=== PATIENT | female | born 1985 | race African-American/Black ===

== ENCOUNTER 2016-05-27 00:22 | Emergency (ER) | payer MEDICAID ==
[~2016-05-27] VITALS: Ht 165.1 cm; Wt 68.0 kg
[~2016-05-27 00:22] MED LIST: ALBU18
[2016-05-27 01:03] LABS: Basophils # (auto) 0 uL; Basophils % (auto) 0.2 % (0.0-2.0); DEFINITIVE VIEW TRANSMISSION; Eosinophils # (auto) 0.1 uL; Eosinophils % (auto) 0.8 % (0.0-7.0); Hematocrit 38.7 % (36.0-46.0); Lymphocytes # (auto) 2.7 uL; Lymphocytes % (auto) 17.1 % (10.0-50.0); Mean Corpuscular Hemoglobin 25.9 pg (28.0-32.0); Mean Corpuscular Hgb Conc. 31.1 g/dL (32.0-36.0); Mean Corpuscular Volume 83.1 fL (80.0-100.0); Monocytes # (auto) 0.8 uL; Monocytes % (auto) 4.8 % (0.0-12.0); Neutrophils # (auto) 12.3 uL; Neutrophils % (auto) 77.1 % (37.0-80.0); Platelet Count (auto) 224 10^3/uL (140-450); Red Cell Distribution Width 15.1 % (11.6-16.0); White Blood Cell 15.9 10^3/uL (4.4-10.8)
[2016-05-27 01:05] LABS: Urine Bilirubin Negative (Negative); Urine Color Yellow (Yellow); Urine Glucose Normal (Normal); Urine Ketone Negative (Negative); Urine Mucus FEW (None Seen); Urine Nitrite Negative (Negative); Urine RBC 2 /hpf (0 - 4); Urine Squamous Epithelial Cell FEW /hpf (<5); Urine Urobilinogen Normal (Negative); Urine pH 8.5 (5.0-8.0)
[2016-05-27 01:06] LABS: Urine Blood 2+ /uL (Negative)
[2016-05-27 01:21] LABS: Albumin 3.6 g/dL (3.4-5.0); BUN/Creatinine Ratio 13.6; Calcium 8.1 mg/dL (8.5-10.1); Potassium 3.3 mmol/L (3.5-5.1)
[2016-05-27 01:23] LABS: Bilirubin, Total 0.5 mg/dL (0.2-1.0); Total Protein 7.2 g/dL (6.4-8.2)
[2016-05-27] MEDS ORDERED: SODIUM CHLORIDE 0.9% 1,000 ML IV ONE (04:16)
[2016-05-27] MEDS ORDERED: CIPROFLOXACIN 400MG/200ML 200 ML IV ONE (04:30)
[2016-05-27] MEDS ORDERED: POTASSIUM CHL 10% (20 MEQ/15ML) ORAL SOLN PO ONE (04:30)
[2016-05-27 05:20] VITALS: BP 102/55
== END 2016-05-27 06:20 | disposition home or self-care (01) ==
LOC: EDUNIT# 00:22 → EDBD 00:22 → ER 00:27
DX: K52.9 Noninfective gastroenteritis and colitis, unspecified (principal); N39.0 Urinary tract infection, site not specified; J45.909 Unspecified asthma, uncomplicated; F17.210 Nicotine dependence, cigarettes, uncomplicated; Z88.6 Allergy status to analgesic agent
CPT/HCPCS: 36415; 74176; 80053; 81001; 81025; 82150; 83690; 85025; 85049; 96361; 96365; 99285; J0744; J7030

== ENCOUNTER 2020-04-20 18:44 | Inpatient (IN) | payer MEDICAID ==
[~2020-04-20] VITALS: Ht 170.2 cm; Wt 63.5 kg
[2020-04-20] MEDS ORDERED: methylPREDNISolone SOD SUCC 125 MG/2 ML VL ONE (18:52)
[2020-04-20] MEDS ORDERED: ONDANSETRON HCL 4 MG/2 ML VIAL ONE (18:59)
[2020-04-20] MEDS ORDERED: SODIUM CHLORIDE 0.9% 1,000 ML IV ONE ×3 (19:00→20:15)
[2020-04-20] MEDS: MAGNESIUM SULFATE 1GM/100ML 100 ML IV SCH ×2 (19:00→20:22)
[2020-04-20] MEDS ORDERED: ALBUTEROL SULF 2.5 MG/0.5ML(0.5%) NEB SOLN NEB ONE ×3 (19:00→20:15)
[2020-04-20] MEDS ORDERED: methylPREDNISolone SOD SUCC 125 MG/2 ML VL IM ONE (19:00)
[2020-04-20] MEDS ORDERED: MAGNESIUM SULFATE 1GM/100ML 100 ML IV SCH (19:15)
[2020-04-20] MEDS ORDERED: ONDANSETRON HCL 4 MG/2 ML VIAL IV ONE (19:15)
[2020-04-20] MEDS ORDERED: IPRATROPIUM BROM 0.5 MG/2.5ML INH SOL NEB ONE ×2 (19:45→20:15)
[2020-04-20 20:23] LABS: Hemoglobin 13.1 g/dL (12.2-16.2); White Blood Cell 18.8 10^3/uL (4.4-10.8)
[2020-04-20 20:25] LABS: Hematocrit 42.4 % (36.0-46.0); Mean Corpuscular Hemoglobin 26.5 pg (28.0-32.0); Mean Corpuscular Hgb Conc. 30.9 g/dL (32.0-36.0); Mean Corpuscular Volume 85.7 fL (80.0-100.0); Platelet Count (auto) 257 10^3/uL (140-450); Red Blood Cells 4.95 10^6/uL (4.0-5.20); Red Cell Distribution Width 14.7 % (11.8-14.3)
[2020-04-20 20:33] LABS: Band Neutrophils % (manual) 0; Basophils % (manual) 0 (0.0-2.0); Metamyelocytes % 0; Myelocytes % 0; Promyelocytes % 0; Reactive Lymphocytes 0
[2020-04-20 20:34] LABS: Blast Cells 0
[2020-04-20 20:41] LABS: Albumin 3.2 g/dL (3.4-5.0); Anion Gap 19 (5-15); Blood Urea Nitrogen 10 mg/dL (7-18); Calcium 8.3 mg/dL (8.5-10.1); Carbon Dioxide 17 mmol/L (21-32); Chloride 102 mmol/L (98-107); Glucose 267 mg/dL (74-106); Magnesium 2.9 mg/dL (1.6-2.6); Potassium 3.5 mmol/L (3.5-5.1); Sodium 138 mmol/L (136-145)
[2020-04-20 20:47] LABS: Alanine Aminotransferase 20 U/L (13-56); Alkaline Phosphatase 61 U/L (45-117); Aspartate Aminotransferase 22 U/L (15-37); Bilirubin, Total 0.3 mg/dL (0.2-1.0); GFR African American 64 mL/min; GFR Non-African American 53 mL/min; Total Protein 6.5 g/dL (6.4-8.2)
[2020-04-20 21:01] LABS: Eosinophils % (manual) 6 (0-7); Lymphocytes % (manual) 55 (10.0-50.0); Monocytes % (manual) 8 (0-12)
[2020-04-20 22:49] LABS: Lactic Acid w/Reflex 3.7 mmol/L (0.4-2.0)
[2020-04-21 02:33] LABS: Alcohol, Urine < 3.0 mg/dL (0-10); Amphetamine Screen, Urine POSITIVE (NEGATIVE); Barbiturate Scree,Urine NEGATIVE (NEGATIVE); Benzodiazephine Screen, Urine NEGATIVE (NEGATIVE); Cannabinoid Screen, Urine NEGATIVE (NEGATIVE); Cocaine Screen, Urine NEGATIVE (NEGATIVE); Phencyclidine Screen, Urine NEGATIVE (NEGATIVE)
[2020-04-21 02:40] LABS: Opiate Scree,Urine NEGATIVE (NEGATIVE)
[2020-04-21] MEDS ORDERED: IPRATROPIUM BROM 0.5 MG/2.5ML INH SOL NEB ONE (02:45)
[2020-04-21] MEDS ORDERED: ALBUTEROL SULF 2.5 MG/0.5ML(0.5%) NEB SOLN NEB ONE ×2 (02:45→07:15)
[2020-04-21 03:56] LABS: Lactic Acid w/Reflex 4.1 mmol/L (0.4-2.0)
[2020-04-21] MEDS ORDERED: VANCOMYCIN 1GM/250ML 250 ML IV ONE (04:30)
[2020-04-21] MEDS ORDERED: SODIUM CHLORIDE 0.9% 1,000 ML IV ONE (04:30)
[2020-04-21] MEDS ORDERED: CEFEPIME 2 GM in SODIUM CHL 0.9% 50 ML IV ONE (04:30)
[2020-04-21] MEDS ORDERED: MORPHINE SULF INJ 2 MG/ML SYRINGE 1ML IV PRN (05:45)
[2020-04-21] MEDS ORDERED: ONDANSETRON HCL 4 MG/2 ML VIAL IV PRN (05:45)
[2020-04-21] MEDS: SODIUM CHLORIDE 0.9% 1,000 ML IV SCH ×2 (05:45→19:05)
[2020-04-21] MEDS ORDERED: ACETAMINOPHEN 325 MG TAB PO PRN (05:45)
[2020-04-21] MEDS ORDERED: NITROGLYCERIN 0.4 MG SL TAB SL PRN (05:45)
[2020-04-21] MEDS ORDERED: ALBUTEROL SULF 2.5 MG/0.5ML(0.5%) NEB SOLN NEB PRN (05:45)
[2020-04-21] MEDS ORDERED: LORazepam 2MG/ML-1ML VIAL ONE (07:26)
[2020-04-21] MEDS ORDERED: LORazepam 2MG/ML-1ML VIAL IV ONE (07:30)
[2020-04-21] MEDS ORDERED: levoFLOXacin 500MG 100 ML IV SCH (10:00)
[2020-04-21] MEDS ORDERED: ENOXAPARIN SOD 40 MG/0.4 ML SYRINGE SC SCH (10:00)
[2020-04-21] MEDS: FAMOTIDINE 20 MG TAB PO SCH ×2 (10:00→22:17)
[2020-04-21] MEDS: methylPREDNISolone SOD SUCC 125 MG/2 ML VL IV SCH ×2 (10:00→22:17)
[2020-04-21] MEDS: IPRATROPIUM BROM 0.5 MG/2.5ML INH SOL NEB SCH (18:00)
[2020-04-21] MEDS: ALBUTEROL SULF 2.5 MG/0.5ML(0.5%) NEB SOLN NEB SCH (18:00)
[2020-04-21 21:30] VITALS: BP 128/77
[2020-04-21] MEDS ORDERED: LORazepam 0.5 MG TAB PO ONE (21:45)
[2020-04-22] MEDS: ALBUTEROL SULF 2.5 MG/0.5ML(0.5%) NEB SOLN NEB SCH
[2020-04-22] MEDS: IPRATROPIUM BROM 0.5 MG/2.5ML INH SOL NEB SCH
== END 2020-04-21 22:20 | disposition left against medical advice (07) | DRG 812 ==
LOC: EDBD 18:44 → ER 18:48 → TELE 18:49
PROVIDERS: ADMIT Nurse Practitioner; ATTEND Internal Medicine
DX: T43.621A Poisoning by amphetamines, accidental (unintentional), initial encounter (principal); A41.9 Sepsis, unspecified organism; J96.20 Acute and chronic respiratory failure, unspecified whether with hypoxia or hypercapnia; E87.2 Acidosis; F17.210 Nicotine dependence, cigarettes, uncomplicated; Z20.828 Contact with and (suspected) exposure to other viral communicable diseases; J45.901 Unspecified asthma with (acute) exacerbation; Z88.6 Allergy status to analgesic agent
CPT/HCPCS: 36415; 71045; 71046; 80053; 80307; 83605; 83735; 83880; 84484; 85007; 85027; 87040; 87426; 93005; 94640; 94644; 96365; 96366; 96367; 96372; 96375; 99291; G0378; J1956; J2405

== ENCOUNTER 2020-07-11 21:59 | Inpatient (IN) | payer MEDICAID ==
[~2020-07-11] VITALS: Ht 170.2 cm; Wt 70.5 kg
[2020-07-11 23:32] LABS: Basophils # (auto) 0 10 ^3/uL (0-0.2); Basophils % (auto) 0.2 % (0.0-2.0); Eosinophils # (auto) 0.2 10 ^3/uL (0-0.8); Hematocrit 44.4 % (36.0-46.0); Monocytes # (auto) 0.9 10 ^3/uL (0-1.3); White Blood Cell 15.3 10^3/uL (4.4-10.8)
[2020-07-11 23:33] LABS: Eosinophils % (auto) 1.5 % (0.0-7.0); Hemoglobin 14.5 g/dL (12.2-16.2); Lymphocytes # (auto) 1.1 10 ^3/uL (0.4-5.4); Lymphocytes % (auto) 7.1 % (10.0-50.0); Mean Corpuscular Hgb Conc. 32.7 g/dL (32.0-36.0); Mean Corpuscular Volume 82.6 fL (80.0-100.0); Monocytes % (auto) 5.9 % (0.0-12.0); Neutrophils # (auto) 13.1 10 ^3/uL (1.6-8.6); Neutrophils % (auto) 85.3 % (37.0-80.0); Red Blood Cells 5.38 10^6/uL (4.0-5.20); Red Cell Distribution Width 15.3 % (11.8-14.3)
[2020-07-11 23:47] LABS: Partial Thromboplastin Time 22.2 sec (23.0-31.2)
[2020-07-12 01:01] LABS: Acetaminophen < 2.0 ug/mL (10-30)
[2020-07-12 02:31] LABS: Potassium 3.6 mmol/L (3.5-5.1)
[2020-07-12 02:43] LABS: Magnesium 2.5 mg/dL (1.6-2.6)
[2020-07-12 02:46] LABS: Albumin 3.8 g/dL (3.4-5.0); BUN/Creatinine Ratio 13.3; Bilirubin, Total 0.6 mg/dL (0.2-1.0); Calcium 8.5 mg/dL (8.5-10.1); Total Protein 7.7 g/dL (6.4-8.2)
[2020-07-12] MEDS ORDERED: LORazepam 2MG/ML-1ML VIAL IV ONE ×2 (03:00→11:55)
[2020-07-12] MEDS ORDERED: ALBUTEROL SULF 2.5 MG/0.5ML(0.5%) NEB SOLN ONE (03:19)
[2020-07-12] MEDS ORDERED: IPRATROPIUM BROM 0.5 MG/2.5ML INH SOL ONE (03:19)
[2020-07-12] MEDS ORDERED: IPRATROPIUM BROM 0.5 MG/2.5ML INH SOL NEB ONE ×3 (03:30→16:30)
[2020-07-12] MEDS ORDERED: methylPREDNISolone SOD SUCC 40 MG/ML VL IV ONE (03:30)
[2020-07-12] MEDS ORDERED: ALBUTEROL SULF 2.5 MG/0.5ML(0.5%) NEB SOLN NEB ONE ×4 (03:30→16:30)
[2020-07-12 06:10] LABS: Salicylate < 1.7 mg/dL (2.8-20.0)
[2020-07-12] MEDS ORDERED: cefTRIAXone 1GM/50ML D5W 50 ML IV ONE (08:45)
[2020-07-12] MEDS ORDERED: TETANUS-DIPTH-ACEL PERTUSSIS 0.5ML SYR Tdap IM ONE (08:45)
[2020-07-12] MEDS ORDERED: LORazepam 0.5 MG TAB PO ONE (08:45)
[2020-07-12] MEDS ORDERED: SODIUM CHLORIDE 0.9% 500 ML IVB ONE (08:45)
[2020-07-12] MEDS ORDERED: SODIUM CHLORIDE 0.9% 1,000 ML IV ONE (08:45)
[2020-07-12] MEDS ORDERED: methylPREDNISolone SOD SUCC 125 MG/2 ML VL IV ONE (11:00)
[2020-07-12 12:09] LABS: Alcohol, Urine < 3.0 mg/dL (0-10); Amphetamine Screen, Urine POSITIVE (NEGATIVE); Barbiturate Scree,Urine NEGATIVE (NEGATIVE); Benzodiazephine Screen, Urine NEGATIVE (NEGATIVE); Cannabinoid Screen, Urine NEGATIVE (NEGATIVE); Cocaine Screen, Urine NEGATIVE (NEGATIVE)
[2020-07-12 12:16] LABS: Opiate Scree,Urine NEGATIVE (NEGATIVE); Phencyclidine Screen, Urine POSITIVE (NEGATIVE)
[2020-07-12] MEDS ORDERED: HYDROcodone-ACET 5/325MG TAB PO PRN (18:15)
[2020-07-12] MEDS ORDERED: ONDANSETRON HCL 4 MG/2 ML VIAL IV PRN (18:15)
[2020-07-12] MEDS ORDERED: ACETAMINOPHEN 500 MG TAB PO PRN (18:15)
[2020-07-12] MEDS ORDERED: NITROGLYCERIN 0.4 MG SL TAB SL PRN (18:15)
[2020-07-12] MEDS ORDERED: MORPHINE SULFATE INJECTION 2 MG/ML SYRG IV PRN ×2 (18:15)
[2020-07-12] MEDS: levoFLOXacin 500MG 100 ML IV SCH (18:43)
[2020-07-12] MEDS: SODIUM CHLORIDE 0.9% 1,000 ML IV SCH (18:43)
[2020-07-12] MEDS ORDERED: ALBUTEROL SULF 2.5 MG/0.5ML(0.5%) NEB SOLN NEB SCH (20:30)
[2020-07-12] MEDS ORDERED: IPRATROPIUM BROM 0.5 MG/2.5ML INH SOL NEB SCH (20:30)
[2020-07-12 20:50] VITALS: BP 129/79
[2020-07-12 20:54] VITALS: BP 117/72
[2020-07-12] MEDS: methylPREDNISolone SOD SUCC 125 MG/2 ML VL IV SCH (21:14)
[2020-07-12] MEDS: LORazepam 2MG/ML-1ML VIAL IV PRN (21:15)
[2020-07-12 21:39] VITALS: BP 129/79
[2020-07-12] MEDS: IPRATROPIUM BROM 0.5 MG/2.5ML INH SOL NEB SCH (22:04)
[2020-07-12] MEDS: BUDESONIDE (INHALATION) 0.5 MG/2 ML NEB NEB SCH (22:04)
[2020-07-12] MEDS: ALBUTEROL SULF 2.5 MG/0.5ML(0.5%) NEB SOLN NEB SCH (22:04)
[2020-07-13] MEDS: SODIUM CHLORIDE 0.9% 1,000 ML IV SCH (02:15)
[2020-07-13 05:05] VITALS: BP 116/63
[2020-07-13] MEDS: IPRATROPIUM BROM 0.5 MG/2.5ML INH SOL NEB SCH ×5 (06:11→22:34)
[2020-07-13] MEDS: ALBUTEROL SULF 2.5 MG/0.5ML(0.5%) NEB SOLN NEB SCH ×5 (06:11→22:34)
[2020-07-13 06:29] LABS: Basophils # (auto) 0 10 ^3/uL (0-0.2); Basophils % (auto) 0.1 % (0.0-2.0); Eosinophils # (auto) 0 10 ^3/uL (0-0.8); Lymphocytes # (auto) 1.3 10 ^3/uL (0.4-5.4); Lymphocytes % (auto) 10.5 % (10.0-50.0); Monocytes # (auto) 0.4 10 ^3/uL (0-1.3); White Blood Cell 12.4 10^3/uL (4.4-10.8)
[2020-07-13 06:31] LABS: Hematocrit 37.9 % (36.0-46.0); Hemoglobin 12.3 g/dL (12.2-16.2); Mean Corpuscular Hemoglobin 26.8 pg (28.0-32.0); Mean Corpuscular Hgb Conc. 32.6 g/dL (32.0-36.0); Mean Corpuscular Volume 82.3 fL (80.0-100.0); Neutrophils # (auto) 10.8 10 ^3/uL (1.6-8.6); Neutrophils % (auto) 86.4 % (37.0-80.0); Red Cell Distribution Width 15.3 % (11.8-14.3)
[2020-07-13 06:38] LABS: Calcium 8.1 mg/dL (8.5-10.1); Potassium 4.4 mmol/L (3.5-5.1)
[2020-07-13 06:40] LABS: BUN/Creatinine Ratio 17.7
[2020-07-13] MEDS: levoFLOXacin 500MG 100 ML IV SCH (08:57)
[2020-07-13] MEDS: methylPREDNISolone SOD SUCC 125 MG/2 ML VL IV SCH (08:58)
[2020-07-13 09:00] VITALS: BP 126/80
[2020-07-13] MEDS: BUDESONIDE (INHALATION) 0.5 MG/2 ML NEB NEB SCH ×2 (09:34→18:57)
[2020-07-13 13:00] VITALS: BP 119/66
[2020-07-13] MEDS ORDERED: FUROSEMIDE 20 MG TAB PO ONE (14:15)
[2020-07-13] MEDS ORDERED: POTASSIUM CHL 20 Meq TABLET PO ONE (14:15)
[2020-07-13] MEDS: LORazepam 2MG/ML-1ML VIAL IV PRN (16:53)
[2020-07-13 17:00] VITALS: BP 102/67
[2020-07-13] MEDS: methylPREDNISolone SOD SUCC 40 MG/ML VL IV SCH (21:26)
[2020-07-13 22:00] VITALS: BP 120/69
[2020-07-14 04:00] VITALS: BP 104/74
[2020-07-14] MEDS: BUDESONIDE (INHALATION) 0.5 MG/2 ML NEB NEB SCH ×2 (06:31→18:06)
[2020-07-14] MEDS: ALBUTEROL SULF 2.5 MG/0.5ML(0.5%) NEB SOLN NEB SCH ×5 (06:32→22:06)
[2020-07-14] MEDS: IPRATROPIUM BROM 0.5 MG/2.5ML INH SOL NEB SCH ×5 (06:32→22:06)
[2020-07-14 06:56] LABS: Basophils # (auto) 0 10 ^3/uL (0-0.2); Eosinophils # (auto) 0 10 ^3/uL (0-0.8); Lymphocytes # (auto) 1.2 10 ^3/uL (0.4-5.4); Monocytes # (auto) 0.3 10 ^3/uL (0-1.3); Monocytes % (auto) 2.6 % (0.0-12.0); Red Cell Distribution Width 15.3 % (11.8-14.3)
[2020-07-14 06:59] LABS: Basophils % (auto) 0.1 % (0.0-2.0); Hematocrit 39.3 % (36.0-46.0); Lymphocytes % (auto) 11.4 % (10.0-50.0); Neutrophils # (auto) 9.1 10 ^3/uL (1.6-8.6); Neutrophils % (auto) 85.9 % (37.0-80.0); Red Blood Cells 4.79 10^6/uL (4.0-5.20); White Blood Cell 10.5 10^3/uL (4.4-10.8)
[2020-07-14 07:11] LABS: BUN/Creatinine Ratio 23.5; Calcium 8.7 mg/dL (8.5-10.1); Potassium 4.2 mmol/L (3.5-5.1)
[2020-07-14 09:00] VITALS: BP 117/57
[2020-07-14] MEDS: methylPREDNISolone SOD SUCC 40 MG/ML VL IV SCH ×2 (11:43→21:28)
[2020-07-14] MEDS: levoFLOXacin 500MG 100 ML IV SCH (11:43)
[2020-07-14 13:00] VITALS: BP 113/63
[2020-07-14 17:00] VITALS: BP 127/74
[2020-07-14] MEDS ORDERED: LEVO500T31 PO (19:10)
[2020-07-14] MEDS ORDERED: PRED20TA2 PO (19:10)
[2020-07-14] MEDS ORDERED: ALB5IS NEB (19:10)
[2020-07-14 22:00] VITALS: BP 118/76
[2020-07-15 00:16] VITALS: BP 102/67
[2020-07-15 05:00] VITALS: BP 110/80
[2020-07-15] MEDS: IPRATROPIUM BROM 0.5 MG/2.5ML INH SOL NEB SCH ×3 (06:34→15:10)
[2020-07-15] MEDS: ALBUTEROL SULF 2.5 MG/0.5ML(0.5%) NEB SOLN NEB SCH ×3 (06:34→15:10)
[2020-07-15 06:36] LABS: BUN/Creatinine Ratio 23.9; Calcium 8.4 mg/dL (8.5-10.1); Potassium 4.1 mmol/L (3.5-5.1)
[2020-07-15 06:58] LABS: Basophils # (auto) 0 10 ^3/uL (0-0.2); Basophils % (auto) 0.1 % (0.0-2.0); Eosinophils # (auto) 0 10 ^3/uL (0-0.8); Hematocrit 40.8 % (36.0-46.0); Hemoglobin 13.6 g/dL (12.2-16.2); Lymphocytes # (auto) 1.3 10 ^3/uL (0.4-5.4); Lymphocytes % (auto) 12.9 % (10.0-50.0); Mean Corpuscular Hgb Conc. 33.3 g/dL (32.0-36.0); Mean Corpuscular Volume 81.3 fL (80.0-100.0); Monocytes # (auto) 0.4 10 ^3/uL (0-1.3); Monocytes % (auto) 3.5 % (0.0-12.0); Neutrophils # (auto) 8.4 10 ^3/uL (1.6-8.6); Neutrophils % (auto) 83.5 % (37.0-80.0); Nucleated Red Blood Cells % 0.1 %; Red Blood Cells 5.02 10^6/uL (4.0-5.20); Red Cell Distribution Width 15.1 % (11.8-14.3); White Blood Cell 10.1 10^3/uL (4.4-10.8)
[2020-07-15 09:00] VITALS: BP 122/79
[2020-07-15] MEDS: levoFLOXacin 500MG 100 ML IV SCH (10:58)
[2020-07-15] MEDS: methylPREDNISolone SOD SUCC 40 MG/ML VL IV SCH (10:58)
[2020-07-15 13:00] VITALS: BP 119/59
[2020-07-15] MEDS: BUDESONIDE (INHALATION) 0.5 MG/2 ML NEB NEB SCH (15:10)
[2020-07-15 16:41] VITALS: BP 107/65
== END 2020-07-15 18:13 | disposition home health service (06) | DRG 133 ==
LOC: EDBD 21:59 → ER 22:00 → TELE 07-12 18:14 → TELE-CENTR 07-12 20:32 → TELE-EAST 07-12 20:50 → TELE-CENTR 07-14 04:00
PROVIDERS: ADMIT Nurse Practitioner Acute Care; ATTEND Internal Medicine
DX: J96.01 Acute respiratory failure with hypoxia (principal); J45.902 Unspecified asthma with status asthmaticus; F41.0 Panic disorder [episodic paroxysmal anxiety]; S00.03XA Contusion of scalp, initial encounter; J01.40 Acute pansinusitis, unspecified; R73.9 Hyperglycemia, unspecified; E66.9 Obesity, unspecified; F41.1 Generalized anxiety disorder; F15.90 Other stimulant use, unspecified, uncomplicated; F16.90 Hallucinogen use, unspecified, uncomplicated; F17.210 Nicotine dependence, cigarettes, uncomplicated; W18.39XA Other fall on same level, initial encounter; Z20.822 Contact with and (suspected) exposure to COVID-19; Z82.49 Family history of ischemic heart disease and other diseases of the circulatory system; Z81.8 Family history of other mental and behavioral disorders; Z83.3 Family history of diabetes mellitus; Y93.89 Activity, other specified; Y99.8 Other external cause status; Z88.8 Allergy status to other drugs, medicaments and biological substances; Y92.008 Other place in unspecified non-institutional (private) residence as the place of occurrence of the external cause; Z68.30 Body mass index [BMI] 30.0-30.9, adult; R65.10 Systemic inflammatory response syndrome (SIRS) of non-infectious origin without acute organ dysfunction; S01.01XA Laceration without foreign body of scalp, initial encounter; R55 Syncope and collapse
CPT/HCPCS: 36415; 36600; 70450; 70486; 71045; 72125; 80048; 80053; 80307; 80329; 82805; 83735; 83880; 84484; 85025; 85610; 85730; 87426; 87804; 90715; 93306; 94640; 96365; 96375; 96376; G0378; J0696; J1956; J2405